=== PATIENT | female | born 1950 | race Caucasian/White ===

== ENCOUNTER 2017-02-24 07:44 | Emergency (ER) | payer MEDICAID, OTHER ==
[~2017-02-24] VITALS: Ht 154.9 cm; Wt 64.0 kg
[2017-02-24 07:49] VITALS: BP 166/81; PULSE 70; RESP 16; TEMP 97.8; O2SAT 96
[2017-02-24 07:57] VITALS: BP 166/81; PULSE 70; RESP 16; TEMP 97.8; O2SAT 96
[2017-02-24] MEDS ORDERED: ESTR.3 PO (08:08)
[2017-02-24] MEDS ORDERED: ATEN25TA PO (08:08)
--- NOTE | 2017-02-24 08:10 | PD ---
HPI Chief Complaint: Fall Time Seen by Provider: 08:00 Travel History International Travel<30 days: No Contact w/Intl Traveler<30days: No Traveled to known affect area: No History of Present Illness HPI Patient is a 66-year-old female presents emergency department after a slip and fall about 5 AM this morning. Patient states that she was out walking her 2 dogs one was a very large bull mastif and one was a smaller dog. Patient states that they saw to animals and one dog when one when another dog went the other and in the confusion she was pulled to the ground. Patient states she also scraped her wrist. Denies any loss of consciousness. States she does not take any blood thinners. Denies any neck pain back pain chest pain abdominal pain. [facility] Past Medical History Hypertension: Yes Past Surgical History Surgical History: No Previous Surgery Social History Alcohol Use: Yes Tobacco Use: No Allergies-Medications (Allergen,Severity, Reaction): Coded Allergies: No Known Allergies (Unverified , 02/24/17) Reported Meds & Prescriptions Reported Meds & Active Scripts Active Reported Atenolol 25 Mg Tab 12.5 Mg PO DAILY Premarin (Estrogens Conjugated) 0.3 Mg Tab 0.3 Mg PO DAILY Review of Systems Except as stated in HPI: all other systems reviewed are Neg Physical Exam Narrative GENERAL: Well-developed well-nourished, obvious facial trauma. SKIN: There is a small abrasion over the distal ulna on the right and a small abrasion over her finger on the left. No lacerations to the face. HEAD: No rodriguez signs, moderate edema periorbital on the left with the patient is able to open her eye and states her vision is normal. There is contusion to left side of face, maxillary/zygomatic tenderness on the left. Remainder of the bony examination of the head is unremarkable.. Normocephalic. EYES: Pupils equal and round. No scleral icterus. No injection or drainage. ENT: No nasal bleeding or discharge. Mucous membranes pink and moist. NECK: Trachea midline. No JVD. CARDIOVASCULAR: Regular rate and rhythm. No murmur appreciated. RESPIRATORY: No accessory muscle use. Clear to auscultation. Breath sounds equal bilaterally. GASTROINTESTINAL: Abdomen soft, non-tender, nondistended. Hepatic and splenic margins not palpable. MUSCULOSKELETAL: No obvious deformities. No clubbing. No cyanosis. No edema. NEUROLOGICAL: Awake and alert. Cranial nerves II through XII are grossly intact and nonfocal, 5 out of 5 strength in all 4 extremity's. PSYCHIATRIC: Appropriate mood and affect; insight and judgment normal. Data Data Last Documented VS Vital Signs Date Time Temp Pulse Resp B/P (MAP) Pulse Ox O2 Delivery O2 Flow Rate FiO2 02/24/17 09:40 80 16 175/103 (127) 97 02/24/17 07:[address] Brain W/O Iv Contrast(Rout) (02/24/17 ) Ct Facial Bones W/O Iv Cont (02/24/17 ) Ct Cerv Spine W/O Contrast (02/24/17 ) Ibuprofen (Motrin) (02/24/17 08:30) MDM Medical Decision Making Medical Screen Exam Complete: Yes Emergency Medical Condition: Yes Differential Diagnosis Facial fracture, globe entrapment unlikely, head injury, neck injury. Narrative Course Patient roomed in the emergency department, underwent CAT scanning of her head neck and facial bones showing no acute fracture or internal injury. She has no skin breakage and no indication for laceration repair. At this time she is stable for discharge. Discussed symptomatic management home she was offered pain medications scripts and she declined. She will take ibuprofen at home. Discussed ice regularly. I did have an opportunity to speak with this patient and private and she adamantly declined any assault Diagnosis Primary Impression: Facial contusion Patient Instructions: Contusion in Adults (DC), General Instructions Disposition: 01 DISCHARGE HOME Condition: Stable Juan Luis Zhou MD Feb 24, 2017 08:10
[2017-02-24] MEDS ORDERED: IBUPROFEN 600 MG TAB PO ONE (08:30)
--- NOTE | 2017-02-24 09:04 | RADRPT ---
EXAM DATE/TIME: 02/24/2017 08:28 [facility] COMPARISON: No previous studies available for comparison. INDICATIONS : Fell while walking dogs this morning. Hit left side. RADIATION DOSE: 59.30 CTDIvol (mGy) MEDICAL HISTORY : None SURGICAL HISTORY : None. ENCOUNTER: Initial ACUITY: 1 day PAIN SCALE: 6/10 LOCATION: Left cranial TECHNIQUE: Multiple contiguous axial images were obtained of the head. Using automated exposure control and adj ustment of the mA and/or kV according to patient size, radiation dose was kept as low as reasonably a chievable to obtain optimal diagnostic quality images. DICOM format image data is available electro nically for review and comparison. FINDINGS: CEREBRUM: The ventricles are normal for age. No evidence of midline shift, mass lesion, hemorrhage or acute in farction. No extra-axial fluid collections are seen. POSTERIOR FOSSA: The cerebellum and brainstem are intact. The 4th ventricle is midline. The cerebellopontine angle i s unremarkable. EXTRACRANIAL: The visualized portion of the orbits is intact. SKULL: The calvaria is intact. No evidence of skull fracture. CONCLUSION: Negative for an acute process. Roman Clark MD FACR on February 24, 2017 at 9:02 Board Certified Radiologist. This report was verified electronically.
--- NOTE | 2017-02-24 09:09 | RADRPT ---
EXAM DATE/TIME: 02/24/2017 08:28 [facility] COMPARISON: No previous studies available for comparison. INDICATIONS : Fell while walking dogs this morning. Hit left side. RADIATION DOSE: 26.02 CTDIvol (mGy) MEDICAL HISTORY : None SURGICAL HISTORY : None. ENCOUNTER: Initial ACUITY: 1 day PAIN SCORE: 6/10 LOCATION: Left facial TECHNIQUE: Volumetric scanning of the facial bones was performed. Using automated exposure control and adjustme nt of the mA and/or kV according to patient size, radiation dose was kept as low as reasonably achiev able to obtain optimal diagnostic quality images. DICOM format image data is available electronicStudio Kate y for review and comparison. FINDINGS: ORBITS: The orbital and infraorbital osseous structures are intact. The retroconal structures have a normal configuration. No radiopaque foreign bodies are seen. NASAL BONE: The nasal bone and maxillary spine are intact ZYGOMATIC ARCHES: Symmetric without evidence of fracture. SINUSES: Minimal incidental maxillary sinus disease is noted. NASAL CAVITY: The nasal septum is intact and midline. The lacrimal ducts are intact. SOFT TISSUES: No radiopaque foreign bodies seen. No soft-tissue swelling is seen. INTRACRANIAL: No intracranial air seen. CRIBIFORM PLATE: Grossly intact. CONCLUSION: Negative for fracture. Roman Clark MD FACR on February 24, 2017 at 9:06 Board Certified Radiologist. This report was verified electronically.
--- NOTE | 2017-02-24 09:11 | RADRPT ---
EXAM DATE/TIME: 02/24/2017 08:28 [facility] COMPARISON: No previous studies available for comparison. INDICATIONS : Fell while walking dogs this morning. Hit left side. RADIATION DOSE: 25.12 CTDIvol (mGy) MEDICAL HISTORY : None SURGICAL HISTORY : None. ENCOUNTER: Initial ACUITY: 1 day PAIN SCALE: 3/10 LOCATION: Left neck TECHNIQUE: Volumetric scanning of the cervical spine was performed. Multiplanar reconstructions in the sagittal, coronal and oblique axial planes were performed. Using automated exposure control and adjustment o f the mA and/or kV according to patient size, radiation dose was kept as low as reasonably achievable to obtain optimal diagnostic quality images. DICOM format image data is available electronically f or review and comparison. FINDINGS: VERTEBRAE: Normal vertebral body height. ALIGNMENT: There is reversal of the normal cervical lordosis. C2-C3: The bony spinal canal is normal in size. No evidence of disc bulge or herniation. The neural forami na are bilaterally patent. C3-C4: Minimal facet disease is present on the left with minimal neural foramen encroachment. C4-C5: Mild uncinate ridging is present without spinal stenosis or fracture. C5-C6: The bony spinal canal is normal in size. No evidence of disc bulge or herniation. The neural forami na are bilaterally patent. C6-C7: The bony spinal canal is normal in size. No evidence of disc bulge or herniation. The neural forami na are bilaterally patent. C7-T1: The bony spinal canal is normal in size. No evidence of disc bulge or herniation. The neural forami na are bilaterally patent. CONCLUSION: Mild degenerative changes without fracture or spinal stenosis. Roman Clark MD FACR on February 24, 2017 at 9:07 Board Certified Radiologist. This report was verified electronically.
[2017-02-24 09:40] VITALS: BP 175/103
[2017-03-06] MEDS ORDERED: ARNI20TI TOPICAL (14:31)
[2017-03-06] MEDS ORDERED: CIPR3.5O LEFT EYE (14:31)
[2017-03-06] MEDS ORDERED: MEDR5TAB3 PO (14:31)
== END 2017-02-24 09:54 | disposition home or self-care (01) ==
LOC: PHED 07:44
DX: S00.83XA Contusion of other part of head, initial encounter (principal); W01.0XXA Fall on same level from slipping, tripping and stumbling without subsequent striking against object, initial encounter; Y93.K1 Activity, walking an animal
CPT/HCPCS: 70450; 70486; 72125; 99285